=== PATIENT | female | born 1995 | race Caucasian/White ===

== ENCOUNTER 2019-01-10 23:09 | Emergency (ER) | payer BC ==
--- NOTE | 2019-01-10 23:19 | ER Report ---
History and Physical Time Seen By MD: 23:15 HPI/ROS CHIEF COMPLAINT: Urinary tract symptoms HISTORY OF PRESENT ILLNESS: 23-year-old female presents a to the ER complaining of urinary burning for several hours. She thinks might have a urinary tract infection. She's been having trouble over the last several months with recurre nt infections. She was seen initially 2 months ago and was treated with a course of Macrobid for 5 days, they urinary tract infection. Returned. She subsequently waited several days and the pain spread into her right back. She had a kidney infection, was placed on Cipro twice a day for 10 days. She finished that approximately 2 weeks ago. She thinks a urinary tract infection. His recurred. She notes no back pain, no fever no chills no headache. No nausea or vomiting. Her last menstrual. Is unknown. Patient's on control and is very irregular. Eyes risk of . Patient denies history of abdominal surgery. Patient is from [place], [place] Allergies: Coded Allergies: Sulfa (Sulfonamide Antibiotics) (Verified Allergy, Intermediate, 01/10/19) Home Meds Active Scripts Cefuroxime Axetil (CEFUROXIME) 500 Mg Tablet, 500 MG PO BID for infection, #14 TAB Prov:JAGJOSE GUADALUPE Montse DO 01/10/19 Reviewed Nurses Notes: Yes Old Medical Records Reviewed: Yes Constitutional Vital Sign - Last 24 Hours 01/10/19 01/10/19 01/10/19 01/10/19 23:20 23:20 23:24 23:30 Temp 98.3 Pulse 93 88 Resp 16 B/P (MAP) 134/100 (111) 134/90 139/90 (106) Pulse Ox 95 96 01/10/19 01/10/19 23:39 23:54 Pulse 84 83 Pulse Ox 94 93 Physical Exam General appearance: Alert no distress. Respiratory: Chest is non tender, lungs are clear to auscultation. Cardiac: Regular rate and rhythm Abdomen: Bowel sounds intact, soft, nontender, no rebound or guarding DIFFERENTIAL DIAGNOSIS: After history and physical exam differential diagnosis was considered for abdominal pain including but not limited to appendicitis, cholecystitis, gastritis and urinary tract infection. Medical Decision Making Data Points Laboratory Urinalysis Test 01/10/19 23:15 Urine Color Colorless Urine Clarity Clear Urine pH 7.0 pH (4.8-9.5) Urine Specific [place] 1.001 Urine Protein Negative mg/dL (NEGATIVE) Urine Glucose (UA) Negative mg/dL (NEGATIVE) Urine Ketones Negative mg/dL (NEGATIVE) Urine Blood Moderate (NEGATIVE) Urine Nitrite Negative (NEGATIVE) Urine Bilirubin Negative (NEGATIVE) Urine Urobilinogen Negative mg/dL (0.2-1.9) Urine Leukocyte Esterase Moderate (NEGATIVE) Urine RBC 1 /HPF (0-2/HPF) Urine WBC 4 /HPF (0-5/HPF) Urine Squamous Epithelial Cells Few /LPF (</=FEW) Urine Bacteria Few /HPF (NONE-FEW) Urine Mucus None /HPF (NONE-FEW) Urine HCG, Qualitative Negative (NEGATIVE) ED Course/Re-evaluation ED Course Patient was admitted to an examination room. H&P was done. The dental diagnoses was considered. Patient's urinalysis suggests a urinary tract infection. She'll be treated with antibiotics. She is advised to take Azo- Standard or Uristat.. Decision to Disposition Date: Jan 10, 2019 Decision to Disposition Time: 23:23 Depart Departure Latest Vital Signs Vital Signs Date Time Temp Pulse Resp B/P (MAP) Pulse Ox O2 Delivery O2 Flow Rate FiO2 01/10/19 23:54 83 93 01/10/19 23:30 139/90 (106) 01/10/19 23:20 98.3 16 Impression: Primary Impression: Urinary tract infection Condition: Improved Disposition: HOME OR SELF-CARE New Scripts Cefuroxime Axetil (CEFUROXIME) 500 Mg Tablet 500 MG PO BID for infection, #14 TAB Prov: JOSE GUADALUPE RM DO 01/10/19 Patient Instructions: Urinary Tract Infection in Women (ED) Additional Instructions: Use Azo-Standard or Uristat to numb your urinary tract infection Follow-up with your primary care doctor upon returning home You might benefit from a visit to see urology and she seemed to be having recurrent urinary tract infections. Problem Qualifiers Primary Impression: Urinary tract infection Urinary tract infection type: acute cystitis Hematuria presence: without hematuria Qualified Codes: N30.00 - Acute cystitis without hematuria JOSE GUADALUPE RM DO Jan 10, 2019 23:19
[2019-01-10 23:30] VITALS: BP 139/90
[2019-01-10] MEDS ORDERED: CEFUROXIME AXETIL 250 MG TAB PO ONE (23:45)
[2019-01-10] MEDS ORDERED: CEFU500T10 PO (23:47)
== END 2019-01-10 23:57 | disposition home or self-care (01) ==
LOC: ER 23:31
DX: N30.00 Acute cystitis without hematuria (principal)
CPT/HCPCS: 81001; 81025; 87088; 99283